=== PATIENT | female | born 1980 | race American Indian/Alaskan Native ===

== ENCOUNTER 2020-10-29 08:26 | Emergency (ER) | payer BC, MEDICAID ==
[2020-10-29 08:32] VITALS: BP 142/84
--- NOTE | 2020-10-29 11:19 | Event Note ---
ED Screening Note Date of service: 10/29/20 Time: 11:15 ED Screening Note: 40 yo f presents to the ED with nausea and vomiting x1 day and headache that began about an hour ago. Patient states some midepigastric abdominal discomfort. LMP: September 17, 2020 This initial assessment/diagnostic orders/clinical plan/treatment(s) is/are subject to change based on patients health status, clinical progression and re- assessment by fellow clinical providers in the ED. Further treatment and workup at subsequent clinical providers discretion. Patient/guardian urged not to elope from the ED as their condition may be serious if not clinically assessed and managed. Initial orders include: Labs ordered. Urinalysis and UPT
[2020-10-29] MEDS ORDERED: ONDANSETRON 4 MG/2 ML INJ IV ONE (11:35)
[2020-10-29] MEDS ORDERED: SODIUM CHLORIDE 0.9% 1000 ML 1,000 ML IV ONE (11:35)
[2020-10-29] MEDS ORDERED: HYOSCYAMINE SUBL 0.125 MG TAB SL ONE (11:35)
--- NOTE | 2020-10-29 11:38 | Emergency Department Report ---
<EFRAINCHRIS GARCIA - Last Filed: 10/29/20 16:38> ED General Adult HPI - General Chief complaint: Abdominal Pain Stated complaint: ABD PAIN, VOMITING Time Seen by Provider: 10/29/20 11:19 Source: patient Mode of arrival: Ambulatory Limitations: No Limitations - History of Present Illness Initial comments: 40-year-old female patient with history of prior and anemia presents to the emergency department with complaints of epigastric abdominal pain with associated nausea, vomiting, and diarrhea starting last night. Patient states the pain has been present for over 12 hours. Describes the pain as "sharp," no exacerbating or relieving factors identified. No history of similar symptoms. Patient has experienced approximately 6 episodes of nonbloody emesis and 6 episodes of nonbloody diarrhea since the onset of her symptoms. No known sick contacts. No current steroid or antibiotic use. No recent travel. Patient has not delivered or aborted a in the last 6 weeks. Last menstrual period was September 17. Denies fever, chills, chest pain, shortness of breath, melena, vaginal bleeding, vaginal discharge, urinary symptoms. Denies other complaints at this time. Severity scale (0 -10): 10 - Related Data Home Medications Medication Instructions Recorded Confirmed Last Taken Acetaminophen [Tylenol] 325 mg PO PRN PRN 12/13/13 12/18/13 12/16/13 21:30 650 mg Previous Rx's Medication Instructions Recorded Last Taken Type HYDROmorphone [Dilaudid] 1 mg PO Q4HR PRN #24 tablet 12/18/13 Unknown Rx Oxycodone HCl/Acetaminophen 1 each PO Q6HR PRN #20 tablet 12/23/13 Unknown Rx [Percocet 10-325 mg] Dicyclomine [Bentyl] 20 mg PO QID #30 tablet 10/29/20 Unknown Rx Ondansetron [Zofran Odt] 4 mg PO Q6H #20 tab.rapdis 10/29/20 Unknown Rx Allergies Allergy/AdvReac Type Severity Reaction Status Date / Time codeine Allergy Swelling Verified 12/23/13 17:38 ED Review of Systems Other: GENERAL: Negative for fever, chills, weight change, anorexia, fatigue. ENT: Negative for ear pain, difficulty hearing, sore throat, nasal congestion, epistaxis. CARDIOVASCULAR: Negative for chest pain, palpitations, lower extremity swelling. PULMONARY: Negative for cough, dyspnea, wheezing, orthopnea, cyanosis. GASTROINTESTINAL: Positive for abdominal pain, nausea, vomiting, diarrhea. MUSCULOSKELETAL: Negative for joint pain, joint swelling, myalgias, back pain, neck pain. NEUROLOGICAL: Negative for headache, seizure, syncope, paresthesias, weakness. INTEGUMENTARY: Negative for erythema, rash, diaphoresis, laceration, ecchymosis. HEMATOLOGICAL: Negative for hemoptysis, hematemesis, hematochezia, hematuria. PSYCHIATRIC: Negative for hallucinations, suicidal ideation, homicidal ideation, anxiety, depression. ED Past Medical Hx - Past Medical History Previous Medical History?: Yes Hx Hypertension: No Hx Heart Attack/AMI: No Hx Renal Disease: No Hx Sickle Cell Disease: No Hx Seizures: No Hx Asthma: Yes (inhaler months ago) Hx COPD: No Additional medical history: Chronic back pain, anemia, history of a pinched nerve in her back - Surgical History Past Surgical History?: Yes Hx Pacemaker: No Hx Internal Defibrillator: No Additional Surgical History: D & C, hemorrhoidectomy - Social History Smoking Status: Never Smoker Substance Use Type: None - Medications Home Medications: Home Medications Medication Instructions Recorded Confirmed Last Taken Type Acetaminophen [Tylenol] 325 mg PO PRN PRN 12/13/13 12/18/13 12/16/13 21:30 History 650 mg HYDROmorphone [Dilaudid] 1 mg PO Q4HR PRN #24 tablet 12/18/13 Unknown Rx Oxycodone HCl/Acetaminophen 1 each PO Q6HR PRN #20 tablet 12/23/13 Unknown Rx [Percocet 10-325 mg] Dicyclomine [Bentyl] 20 mg PO QID #30 tablet 10/29/20 Unknown Rx Ondansetron [Zofran Odt] 4 mg PO Q6H #20 tab.rapdis 10/29/20 Unknown Rx ED Physical Exam - General Limitations: No Limitations - Other Other exam information: General: Awake and alert. No acute distress. Head: Atraumatic, normocephalic. Eyes: EOMI. Pupils are equal and round. Normal sclera and conjunctiva. ENT: Oral mucosa is moist. Normal pharyngeal exam. Neck: Supple. No lymphadenopathy. Pulmonary: No respiratory distress. Clear to auscultation bilaterally. Cardiac: Regular rate and rhythm. Pulses are palpable and equal bilaterally. No lower extremity cyanosis or edema. Skin: Warm and dry. No rashes. Abdomen: Soft, non-tender, non-protuberant. Epigastric and right upper quadrant tenderness without guarding, rigidity, or rebound. Bowel sounds are normal. No organomegaly or masses noted. McBurney's point is nontender. Clarke sign is negative. Back: Normal alignment. No CVA tenderness. Extremities: Symmetrical. Full range of motion intact. Neurological: Alert and oriented, appropriately interactive, no focal deficits. Psych: Cooperative. Appropriate mood and affect. Speech is evenly metered. Thoughts are logically construed. ED Medical Decision Making - Lab Data Result diagrams: 10/29/20 11:25 10/29/20 11:25 - Medical Decision Making Differential diagnosis including but not limited to: pancreatitis, cholecystitis, appendicitis, ectopic , ovarian cyst/torsion, dehydr ation, electrolyte abnormality, urinary tract infection, pyelonephritis On reevaluation, patient remains stable. Repeat abdominal exam is benign. Tachycardia resolved; repeat heart rate 92 bpm. Labs are unremarkable. test is negative. Urinalysis without evidence of infection. Patient is afebrile, hemodynamically stable, tolerating oral intake without difficulty. Etiology of patient's abdominal pain is unclear however there is no clinical indication for further diagnostic work-up on an emergent basis at this time. Suspect symptoms are attributable to viral illness although cholelithiasis has not definitively been excluded. Presentation is inconsistent with cholecystitis and/or acute biliary obstruction. Patient was advised to follow-up with her primary care provider and advised that she may require further work-up on an outpatient basis if her symptoms persist. She will be discharged home with appropriate symptomatic treatment. Patient expressed understanding and is agreeable to plan of care. Strict return precautions provided Repeat exam is unremarkable and benign. History, exam, diagnostic testing, and current condition do not suggest worrisome pathology to warrant further testing, continued ED treatment, admission, or surgical evaluation at this point. Given the low probability of a significant medical illness, it would be more likely to result in harm than benefit to perform further testing at this stage. Discussed findings, presumptive diagnosis, need for follow-up and specific signs/symptoms that should prompt immediate return to the emergency department. Instructions were explained in detail to the patient in addition to giving written discharge information. Patient expressed understanding and was given the opportunity to ask questions, all of which were satisfactorily answered prior to discharge home. ED Disposition Clinical Impression: Nonspecific abdominal pain Disposition: DC-01 TO HOME OR SELFCARE Is pt being admited?: No Does the pt Need Aspirin: No Condition: Stable Instructions: Abdominal Pain, Adult, [id number], Abdominal Pain (ED) Additional Instructions: Take Tylenol every 4 hours as needed for pain. Take Bentyl as directed for intestinal discomfort. Take Zofran as directed for nausea/vomiting. Rest. Drink plenty fluids. Wash hands frequently to prevent disease transmission. Do not share food or drinks with others. Gradually advance diet slowly as tolerated. Follow-up with your primary care provider this week. Call today to schedule an appointment. Return to the emergency department immediately for new or worsening symptoms. Specifically, return to the emergency department immediately for fever, worsening pain, dehydration, vaginal bleeding, pain localized to the right lower area of your abdomen, or any other concerns. Prescriptions: Dicyclomine [Bentyl] 20 mg PO QID #30 tablet Ondansetron [Zofran Odt] 4 mg PO Q6H #20 tab.rapdis Referrals: BARRY HEATON NP [Primary Care Provider] - 3-5 Days Forms: Work/School Release Form(ED) Time of Disposition: 14:38 <AUGIE HELM - Last Filed: 10/30/20 11:58> ED Review of Systems ROS: Stated complaint: ABD PAIN, VOMITING Other details as noted in HPI ED Course Vital Signs 10/29/20 10/29/20 08:30 15:11 Temperature 99.2 F Pulse Rate 105 H 92 H Respiratory 20 18 Rate Blood Pressure 142/84 [Right] O2 Sat by Pulse 99 99 Oximetry ED Medical Decision Making - Lab Data Result diagrams: 10/29/20 11:25 10/29/20 11:25 Critical care attestation.: If time is entered above; I have spent that time in minutes in the direct care of this critically ill patient, excluding procedure time. ED Disposition Is pt being admited?: No Does the pt Need Aspirin: No
[2020-10-29 12:15] LABS: Alanine Aminotransferase 8 units/L (7-56); Albumin 3.8 g/dL (3.9-5); Blood Urea Nitrogen 14 mg/dL (7-17); Calcium 10.2 mg/dL (8.4-10.2); Hemolysis Index 0
[2020-10-29 12:16] LABS: Eosinophils % (Auto) 0.4 % (0.0-4.3); Monocytes # (Auto) 0.5 K/mm3 (0.0-0.8); Monocytes % (Auto) 6.3 % (0.0-7.3)
[2020-10-29 12:17] LABS: Basophils % (Auto) 0.1 % (0.0-1.8); Hematocrit 35.6 % (30.3-42.9); Hemoglobin 11.6 gm/dl (10.1-14.3); Lymphocytes # (Auto) 1.4 K/mm3 (1.2-5.4); Lymphocytes % (Auto) 16.3 % (13.4-35.0); Mean Corpuscular HGB Conc 33 % (30-34); Mean Corpuscular Volume 78 fl (79-97); Platelet Count 367 K/mm3 (140-440); Red Blood Count 4.57 M/mm3 (3.65-5.03); Red Cell Distribution Width 16.9 % (13.2-15.2)
[2020-10-29 12:34] LABS: BUN/Creatinine Ratio 20
[2020-10-29 14:21] LABS: Bilirubin,Urine NEG (Negative); Blood,Urine NEG (Negative); Color,Urine Yellow (Yellow); Mucus,Urine FEW /HPF; Protein,Urine <15 mg/dL mg/dL (Negative); Urobilinogen,Urine < 2.0 mg/dL (<2.0); WBC,Urine < 1.0 /HPF (0.0-6.0)
== END 2020-10-29 15:16 | disposition home or self-care (01) ==
LOC: ED 08:26
DX: R10.13 Epigastric pain (principal); R19.7 Diarrhea, unspecified; R11.2 Nausea with vomiting, unspecified; J45.909 Unspecified asthma, uncomplicated; Z90.89 Acquired absence of other organs; Z79.899 Other long term (current) drug therapy; Z88.8 Allergy status to other drugs, medicaments and biological substances
CPT/HCPCS: 36415; 80053; 81001; 83690; 83735; 84703; 85025; 96361; 96374; 99283; J2405; J7030